=== PATIENT | male | born 1935 | race Caucasian/White ===

== ENCOUNTER 2017-05-23 07:32 | Emergency (ER) | payer OTHER ==
[2017-05-23 08:05] LABS: BASOPHIL 0.3 % (0-2); EOSINOPHIL 4.3 % (0-7); HCT 40.1 % (42.0-52.0); HGB 13.4 g/dl (13.2-18.0); LYMPHOCYTE 56.5 % (15-48); MCH 30.9 pg (25.0-31.0); MCHC 33.4 g/dL (32.0-36.0); MCV 92.4 fL (78.0-100.0); MONOCYTE 7.4 % (0-12); MPV 9.8 fL (6.0-9.5); NEUTROPHIL 31.5 % (41-80); PLT 312 K/uL (150-400); RBC 4.34 M/uL (4.70-6.00); RDW 13.6 % (11.5-14.0); WBC 12.9 K/uL (4.0-10.5)
[2017-05-23 08:21] LABS: ALBUMIN 4.2 g/dL (3.4-4.8); BILIRUBIN - TOTAL 0.4 mg/dL (0.1-1.0); CREATININE 1.1 mg/dL (0.7-1.2); GLOBULIN (CALCULATION) 3.6 g/dL (2.2-4.2); POTASSIUM 4.1 mmol/L (3.5-5.1); TOTAL PROTEIN 7.8 g/dL (6.4-8.3)
== END 2017-05-23 10:31 | disposition home or self-care (01) ==
LOC: FER 07:32
PROVIDERS: Internal Medicine
DX: H83.03 Labyrinthitis, bilateral (principal); I10 Essential (primary) hypertension; Z79.899 Other long term (current) drug therapy
CPT/HCPCS: 36415; 70450; 80053; 85025; 93005